=== PATIENT | male | born 1980 | race African-American/Black ===

== ENCOUNTER → 2016-10-31 | Outpatient (CLI) | payer MEDICAID | END | disposition home or self-care (01) | LOC: LABWHC1 13:01 | PROVIDERS: ATTEND Orthopaedic Surgery | DX: M79.672 Pain in left foot (principal); M72.2 Plantar fascial fibromatosis; M21.6X2 Other acquired deformities of left foot; M84.375A Stress fracture, left foot, initial encounter for fracture; E55.9 Vitamin D deficiency, unspecified | CPT/HCPCS: 36415; 82306 ==

== ENCOUNTER → 2019-12-14 | Outpatient (CLI) | payer MEDICAID, OTHER ==
--- NOTE | 2019-12-15 08:48 | MM ---
Reason for exam: clinical finding. Baseline mammogram. Indicated problem(s): lump or thickening in the left breast. Physical Findings: Nurse did not find any significant physical abnormalities on exam. MG Diagnostic Mammo w CAD REA Bilateral CC and MLO view(s) were taken. Bilateral minimal retroareolar flame shaped gynecomastia greater in the left breast. These results were verbally communicated with the patient and result sheet given to the patient on 12/14/19. ASSESSMENT: Incomplete: need additional imaging evaluation, BI-RAD 0 RECOMMENDATION: Ultrasound of the left breast. Manage patient on a clinical basis.
--- NOTE | 2019-12-15 08:51 | USB ---
Reason for exam: clinical finding. US Breast Limited LT Left limited breast ultrasound including focal area of concern, retroareolar and axilla demonstrates a 1.7cm hypoechoic lesion at the posterior nipple, correlates with mammogram, mild gynecomastia. No cystic or solid lesion at patient's palpable's. These results were verbally communicated with the patient and result sheet given to the patient on 12/14/19. ASSESSMENT: Benign, BI-RAD 2 RECOMMENDATION: Clinical management of the left breast. Manage patient on a clinical basis.
== END | disposition home or self-care (01) ==
LOC: RADMAMWWP 14:34
PROVIDERS: ATTEND Internal Medicine
DX: N63.20 Unspecified lump in the left breast, unspecified quadrant (principal); R92.8 Other abnormal and inconclusive findings on diagnostic imaging of breast
CPT/HCPCS: 77066

== ENCOUNTER → 2021-01-20 | Outpatient (CLI) | payer OTHER ==
--- NOTE | 2021-01-20 15:04 | CT ---
EXAMINATION TYPE: CT chest wo con DATE OF EXAM: 01/20/2021 COMPARISON: None HISTORY: Left chest and LUQ pain CT DLP: 1225.6 mGycm, Automated exposure control for dose reduction was used. CONTRAST: None TECHNIQUE: Axial images were obtained at 1 mm thick sections at 10 mm intervals. This will limit po rtions of the examination which may not be visualized within the [id number]. Images were obtained in the prone and supine views. FINDINGS: Portion of the thyroid visualized is normal. No suspicious lung nodules or focal infiltrat es are present. No enlarged mediastinal or hilar adenopathy is evident. Small pretracheal lymph nodes are present. The ascending aorta diameter at the level of the main pulmonary artery is 3.1 cm. The main pulmonary artery diameter at the bifurcation is 2.3r cm. Limited CT sections are obtained through the upper abdomen. Abdomen is essentially unremarkable. IMPRESSIONS: 1. No acute changes high-resolution CT chest
--- NOTE | 2021-01-20 15:14 | CT ---
EXAMINATION TYPE: CT abdomen wo con DATE OF EXAM: 01/20/2021 COMPARISON: None INDICATION: Left chest and LUQ pain DLP: 1013.7 mGycm, Automated exposure control for dose reduction was used. CONTRAST: 0 mL of Isovue 300. Study performed without Oral Contrast TECHNIQUE: Axial images were obtained from above the diaphragm to the pubic rami in the axial plane a t 5 mm thick sections. Reconstructed images are reviewed on the computer in the coronal plane. FINDINGS: Limited CT sections are obtained the lung bases. The lung bases are clear. CT ABDOMEN: Liver: Normal Spleen: Normal Pancreas: Normal Adrenal glands: The adrenal glands are normal. Gallbladder: Normal Kidneys: No masses are evident. No hydronephrosis is present. No cysts are present. No renal stone s are evident Aorta: Vascular calcification is within the aorta. Inferior vena cava: Normal. Loops of bowel within the abdomen and pelvis are normal. Study is without oral contrast limiting evaluation. No dilated loops of bowel are evident. IMPRESSIONS: 1. Normal noncontrast CT abdomen
== END | disposition home or self-care (01) ==
LOC: RADCTMAIN 14:22
PROVIDERS: ATTEND Internal Medicine
DX: R07.9 Chest pain, unspecified (principal); R10.12 Left upper quadrant pain
CPT/HCPCS: 71250; 74150

== ENCOUNTER → 2021-02-08 | Outpatient (CLI) | payer OTHER ==
--- NOTE | 2021-02-08 15:37 | CONS ---
CONSULTATION DATE OF SERVICE: 02/08/2021. This 40-year-old year old gentleman has been evaluated in the sleep center for possible obstructive sleep apnea-hypopnea syndrome. HISTORY OF PRESENT ILLNESS/SLEEP-WAKE EVALUATION: Patient's usual sleep schedule from 12:30 to 1 a.m. until 8:30 to 9:30 a.m. No problems with falling asleep, although he has TV in bedroom. He sleeps in different positions, including back, side and stomach with very loud snoring and witnessed episodes of stopped breathing during sleep. The patient wakes up from sleep many times and has to go to the restroom also multiple times during the night. No history of hypnagogic hallucinations, sleep paralysis or cataplexy. During the day, patient feels significantly sleepy. [place] Sleepiness Scale is in very high range of 20. He had episodes when he fell asleep during conversation. PAST MEDICAL HISTORY: Positive for headaches, back problems, bronchitis. CURRENT MEDICATIONS: Ventolin, Claritin, Desmet 7.5/325 mg. PAST SURGICAL HISTORY: None. FAMILY HISTORY: Stroke, hypertension, heart problems, cancer, diabetes. REVIEW OF SYSTEMS: Multiple awakenings from sleep, sleepiness during the day. No fevers. No double vision. No recent chest pain. No shortness of breath. No abdominal pain. No bleeding episodes. No blood in the urine. No seizure episodes. PHYSICAL EXAMINATION: GENERAL: -[place] gentleman without distress. VITAL SIGNS: BP 133/82, HR 88, RR 14, height 5 feet and 5 inches, weight 305.8, temperature 98.2, oxygen saturation at room air 99%. Body mass index 50.7. HEENT: PERRLA, EOMI. Oropharynx low position of soft palate. NECK: Wide 20-1/2 inches in circumference. LUNGS: Clear to percussion and to auscultation. Good air exchange. No wheezing or rhonchi. HEART: S1, S2 regular. No murmurs, gallops, or rubs. ABDOMEN: Soft and nontender. Bowel sounds are present. No organomegaly appreciated. EXTREMITIES: No clubbing or cyanosis. BALCONY WORKER: Awake, alert, and oriented X3. Cranial nerves 2 to 7 intact. There is no fasciculation or atrophy. noted. No focal deficits observed. IMPRESSION: 1. Loud snoring, witnessed episodes of stopped breathing during sleep, multiple awakenings from sleep, sleepiness, low position of soft palate, wide neck; obstructive sleep apnea-hypopnea syndrome. 2. Morbid obesity, body mass index 50.7. 3. Significant excessive daytime sleepiness. [place] Sleepiness Scale is 20. Dictated necessity to include hypersomnia and narcolepsy in differential diagnosis, but most probably all symptoms related to sleep apnea. 4. The patient is on treatment on Desmet which may increase risk for central sleep apnea. 5. Headaches. 6. Smoker for 20 years. PLAN: 1. Polysomnography for evaluation of patient's breathing during sleep. 2. CPAP/BiPAP titration if sleep study confirms obstructive sleep apnea-hypopnea syndrome. 3. Preferable position during sleep on the side. 4. No driving if patient feels any sleepiness. 5. I will see patient for follow up visit to explain results of testing and following plan. Thank you very much for referring this patient for consultation. Sincerely, Lane Vaughan MD, PhD, FAASM Diplomat of [place] [employer] [place] [employer] Case Assistant of [facility] [place] MMODL / ANIAN: [id number] /
== END ==
LOC: SLEEP 13:12
PROVIDERS: ATTEND Internal Medicine
DX: G47.33 Obstructive sleep apnea (adult) (pediatric) (principal); E66.01 Morbid (severe) obesity due to excess calories; Z68.43 Body mass index [BMI] 50.0-59.9, adult; Z87.891 Personal history of nicotine dependence; R51.9 Headache, unspecified
CPT/HCPCS: 99211

== ENCOUNTER → 2021-11-02 | Outpatient (CLI) | payer OTHER ==
--- NOTE | 2021-11-02 16:54 | SFUN ---
SLEEP CENTER FOLLOW UP NOTE DATE OF SERVICE: 11/02/2021. 41-year-old gentleman has been followed in Sleep Center for treatment of obstructive sleep apnea-hypopnea syndrome. The patient recently had sleep studies which showed extremely severe obstructive sleep apnea-hypopnea syndrome and I discussed results of sleep testing with patient in detail. Today is his first visit after he was started on treatment with CPAP. He feels much better with the CPAP. Sleepiness decreased from [place] Sleepiness Scale 20 down to 9 today. He sleeps better and he feels better. He only experiencing some dryness in the mouth while using machine. He is using fullface mask. I checked his BiPAP unit. Pressure is 18/14 cm of water. Usage is /30 nights and nights more than 4 hours. Average usage 6.8 hours per night, which is great compliance. Leak is high 55 L/minute. The patient using fullface mask. Apnea-hypopnea index 0.7 which is totally normal. Original apnea-hypopnea index is 100.6 with oxygen desaturation to 59.5%. MEDICATIONS: Ventolin, Claritin, [place], hydroxyzine. PHYSICAL EXAMINATION: GENERAL: Patient in no distress. BP 127/77, HR 80, RR 16, weight 298, temp 98.1, oxygen saturation at room air 98%. Oropharynx: Low position of soft palate. Neck is extremely wide 20.5 inches in circumference. NECK: Supple, no JVD. Thyroid is not palpable. LUNGS: Clear to percussion and to auscultation. Good air exchange. No wheezing or rhonchi. HEART: S1, S2 regular. No murmurs, gallops, or rubs. ABDOMEN: Slightly obese. Soft and nontender. Bowel sounds are present. No organomegaly appreciated. EXTREMITIES: No clubbing or cyanosis. COMPUTER METHODS ANALYST: Awake, alert, and oriented X3. Cranial nerves 2 to 7 intact. There is no fasciculation or atrophy. noted. No focal deficits observed. IMPRESSION: 1. Extremely severe obstructive sleep apnea-hypopnea syndrome apnea-hypopnea index 100.6 with oxygen desaturation to 59.5%. The patient demonstrated great compliance with treatment, benefitting from treatment. Totally normal respiration on BiPAP. Apnea-hypopnea index 0.7. The patient improved his alertness to normal range. 2. Obesity. 3. History of headaches. 4. Smoker for 20 years. PLAN: 1. I taught the patient how to adjust humidity in a BiPAP unit and I adjusted humidity up from level 4 to level 6. 2. I explained to patient about position of the machine during the night and necessity to be sure he has to remove the water from the tube and humidifier letter, dry. 3. Patient will continue to use PAP equipment every night for the whole night. 4. Sleep hygiene with regular time in bed for at least 7-1/2 to 8 hours. 5. Precautions related to driving. No driving if feeling sleepiness. 6. I will maintain all necessary prescription for PAP supplies including mask, tube, filters. 7. Watching weight. 8. Follow-up visit in 6 months or earlier if patient has any problems. Thank you very much for allowing me to participate in management of your patient. Sincerely, Lane Vaughan MD, PhD, FAASM Diplomat of [place] [employer] Sleep Medicine Board of [place] [employer] of Internal Medicine Creative Engagement Director of [facility] [place] MMYULIA / MAX: [phone] /
== END ==
LOC: SLEEP 11:40
PROVIDERS: ATTEND Internal Medicine
DX: G47.33 Obstructive sleep apnea (adult) (pediatric) (principal); G47.36 Sleep related hypoventilation in conditions classified elsewhere; E66.9 Obesity, unspecified; Z86.69 Personal history of other diseases of the nervous system and sense organs; Z87.891 Personal history of nicotine dependence; Z99.89 Dependence on other enabling machines and devices

== ENCOUNTER → 2022-05-17 | Outpatient (CLI) | payer OTHER ==
--- NOTE | 2022-05-17 12:20 | P.PN ---
Subjective DATE: 05/17/2022 FOLLOW UP VISIT. Patient with obstructive sleep apnea hypopnea syndrome return to sleep center for follow-up visit. Information from previous visit have been reviewed. Patient is using PAP equipment every night for the whole night, getting PAP supplies in time. Patient feels that his humidifier in BiPAP unit does not work well. [place] sleepiness scale is 6. I checked BiPAP unit. Heated humidifier does not work properly. Air filter has to be changed immediately. BiPAP unit pressure 18/14 cm H2O. Usage is 100 % for more then 4 hours, average 7.6 hours per night. Leak is 70 l/m, which is in high range. Apnea Hypopnea Index is 0.3, which is normal. MEDICATIONS:1. Loratidine 2. Motrin During physical exam: GENERAL: A pleasant patient without any distress. VITAL SIGNS: BP 120/84, HR 80, RR 16, weight 278.8, temperature 97.3, oxygen saturation at room air 99 % . HEENT: PERRLA, EOMI.low position of soft palate. NECK: Supple. No JVD. LUNGS: Clear to percussion and to auscultation. Good air exchange. No wheezing or rhonchi. HEART: S1, S2 regular. ABDOMEN: Soft and nontender. Obese EXTREMITIES: No clubbing or cyanosis. RECOVERY MANAGER: Awake, alert, and oriented x3. No focal deficit. Impressions: 1. Obstructive sleep apnea-hypopnea syndrome. Patient demonstrated great compliance with treatment, benefiting from treatment. Heated humidifier does not work well. 2. Obesity. 3. Headaches. 4. ALLERGY. 5. Smoker. Plan: 1. Continue using PAP equipment every night for the whole night. Prescription was written to fix or replace heated humidifier in BiPAP unit. 2. To change air filter at least 1-2 times per month. 3. PAP unit should stay lower then position of the head. 4. Advised patient to remove all remaining water from humidifier canister daily and make it dry after each usage. Refill canister with fresh distilled water before each usage. 5. Sleep hygiene with regular time in bed for at least 8 hours. 6. Precautions related to driving. No driving if feel any sleepiness. 7. I will maintain prescription for PAP supplies including mask, tube, filters. 8. Follow up visit in 6 months or earlier if patient has any problems. 9. Losing weight. 10. Smoking cessation program. Thank you very much for allowing me to participate in the management of your patient. Lane Vaughan MD, PhD, FAASM. Diplomat of [place] Board of Sleep Medicine, Sleep Medicine Board by [place] Board of Internal Medicine An/Syq 13 Nav/C2 Operator of [facility] [place]
== END ==
LOC: SLEEP 11:35
PROVIDERS: ATTEND Internal Medicine
DX: G47.33 Obstructive sleep apnea (adult) (pediatric) (principal); E66.9 Obesity, unspecified; T78.40XA Allergy, unspecified, initial encounter; Z87.891 Personal history of nicotine dependence; Z99.89 Dependence on other enabling machines and devices

== ENCOUNTER → 2023-06-06 | Outpatient (CLI) | payer OTHER ==
--- NOTE | 2023-06-06 13:38 | P.PN ---
Subjective DATE: 06/06/2023 FOLLOW UP VISIT. Patient with obstructive sleep apnea hypopnea syndrome return to sleep center for follow-up visit. Information from previous visit have been reviewed. Patient is using PAP equipment every night for the whole night, getting PAP supplies in time. The patient does not have significant problems with the mask, PAP unit and humidification. [place] sleepiness scale is 10, which is borderline. I checked information from PAP unit. PAP unit pressure 18/14 cm H2O. Usage is 100 % for more then 4 hours, average 8.1 hours per night. Leak is extremely high 65 l/m. Patient has hole in his mask. Apnea Hypopnea Index is 1.0, which is normal. Temperature in the heated tube to is 62, which could be the reason for condensation of water in the tube. MEDICATIONS:1. Vitamin D 2. Vitamin C 3. Motrin During physical exam: GENERAL: A pleasant patient without any distress. VITAL SIGNS: BP 133/81, HR 70, RR 16 , weight 278.8, temperature 97.8, oxygen saturation at room air 98 % . HEENT: PERRLA, EOMI.low position of soft palate, Mallapati 3 . NECK: Supple. No JVD. LUNGS: Clear to percussion and to auscultation. Good air exchange. No wheezing or rhonchi. HEART: S1, S2 regular. ABDOMEN: Soft and nontender. Slightly obese EXTREMITIES: No clubbing or cyanosis. TRIPPER: Awake, alert, and oriented x3. No focal deficit. Impressions: 1. Obstructive sleep apnea-hypopnea syndrome. Patient demonstrated great compliance with treatment, benefiting from treatment. 2. Obesity, BMI 46.4, patient lost 8 pounds since previous visit. 3. ALLERGY. 4. History of headaches. I increased temperature in the tube to 82. Plan: 1. Continue using PAP equipment every night for the whole night. Patient should replace his CPAP fullface mask immediately. We gave him new mask. 2. To change air filter at least 1-2 times per month. 3. PAP unit should stay lower then position of the head. 4. Advised patient to remove all remaining water from humidifier canister daily and make it dry after each usage. Refill canister with fresh distilled water before each usage. 5. Sleep hygiene with regular time in bed for at least 8 hours. 6. Precautions related to driving. No driving if feel any sleepiness. 7. I will maintain prescription for PAP supplies including mask, tube, filters. 8. Follow up visit in 6 months or earlier if patient has any problems. 9. Watching and losing weight. Thank you very much for allowing me to participate in the management of your patient. Lane Vaughan MD, PhD, FAASM. Diplomat of [place] Board of Sleep Medicine, Sleep Medicine Board by [place] Board of Internal Medicine Junior Assistant Manager of [facility] [place]
== END ==
LOC: 3 N SLEEP 10:52
PROVIDERS: ATTEND Internal Medicine
DX: G47.33 Obstructive sleep apnea (adult) (pediatric) (principal); E66.9 Obesity, unspecified; F17.200 Nicotine dependence, unspecified, uncomplicated; Z68.42 Body mass index [BMI] 45.0-49.9, adult; Z86.69 Personal history of other diseases of the nervous system and sense organs; Z99.89 Dependence on other enabling machines and devices
CPT/HCPCS: 99212

== ENCOUNTER → 2023-12-12 | Outpatient (CLI) | payer BC ==
[2023-12-12 12:01] VITALS: BP 128/76; PULSE 60; RESP 16; TEMP 97.5
--- NOTE | 2023-12-12 12:14 | P.PN ---
Subjective DATE: 12/12/2023 FOLLOW UP VISIT. Patient with obstructive sleep apnea hypopnea syndrome return to sleep center for follow-up visit. Information from previous visit have been reviewed. Patient is using PAP equipment every night for the whole night, getting PAP supplies in time. The patient does not have significant problems with the mask, PAP unit and humidification. [place] sleepiness scale is increased to 13. I checked information from PAP unit. BPAP unit pressure 18/14 cm H2O. Usage is 100% for more then 4 hours, average 7.7 hours per night. Leak is increased to 52 l/m. Apnea Hypopnea Index is 0.7, which is perfect. MEDICATIONS:1. Flexeril 2. Motrin 3. Vitamin C During physical exam: GENERAL: A pleasant patient without any distress. VITAL SIGNS: See below. HEENT: PERRLA, EOMI.low position of soft palate, Mallapati 3 . NECK: Supple. No JVD. LUNGS: Clear to percussion and to auscultation. Good air exchange. No wheezing or rhonchi. HEART: S1, S2 regular. ABDOMEN: Soft and nontender. Obese EXTREMITIES: No clubbing or cyanosis. COURT STENOGRAPHER: Awake, alert, and oriented x3. No focal deficit. Impressions: 1. Obstructive sleep apnea-hypopnea syndrome. Patient demonstrated great compliance with treatment, benefiting from treatment. 2. Obesity, patient increased weight on 9 pounds. 3. Allergy. 4. History of headaches. Plan: 1. Continue using PAP equipment every night for the whole night. 2. To change air filter at least 1-2 times per month. 3. PAP unit should stay lower then position of the head. 4. Advised patient to remove all remaining water from humidifier canister daily and make it dry after each usage. Refill canister with fresh distilled water before each usage. 5. Sleep hygiene with regular time in bed for at least 8 hours. 6. Precautions related to driving. No driving if feel any sleepiness. 7. I will maintain prescription for PAP supplies including mask, tube, filters. 8. Watching and losing weight. 9. Follow up visit in 6 months or earlier if patient has any problems. Thank you very much for allowing me to participate in the management of your patient. Lane Vaughan MD, PhD, FAASM. Diplomat of [place] Board of Sleep Medicine, Sleep Medicine Board by [place] Board of Internal Medicine Cooker Syrup of [facility] [place] Objective - Vital Signs Vital signs: Vital Signs Temp 97.5 F L 12/12/23 12:00 Pulse 60 12/12/23 12:00 Resp 16 12/12/23 12:00 BP 128/76 12/12/23 12:00 Pulse Ox 97 12/12/23 12:00 FiO2 Intake & Output 12/11/23 12/12/23 12/12/23 18:59 06:59 18:59 Weight 130.181 kg
== END ==
LOC: 3 N SLEEP 11:18
PROVIDERS: ATTEND Internal Medicine
DX: G47.33 Obstructive sleep apnea (adult) (pediatric) (principal); E66.9 Obesity, unspecified; F17.200 Nicotine dependence, unspecified, uncomplicated; T78.40XA Allergy, unspecified, initial encounter; Z86.69 Personal history of other diseases of the nervous system and sense organs; Z99.89 Dependence on other enabling machines and devices; Z68.42 Body mass index [BMI] 45.0-49.9, adult
CPT/HCPCS: 99212

== ENCOUNTER → 2024-07-16 | Outpatient (CLI) | payer BC ==
[2024-07-16 11:28] VITALS: BP 120/78; PULSE 75; RESP 18; TEMP 97.7
--- NOTE | 2024-07-16 11:49 | P.PROGSL ---
Subjective DATE: 07/16/2024 FOLLOW UP VISIT. Patient with obstructive sleep apnea hypopnea syndrome return to sleep center for follow-up visit. Information from previous visit have been reviewed. Patient is using PAP equipment every night for the whole night, getting PAP supplies in time. The patient does not have significant problems with the mask, PAP unit and humidification. [place] sleepiness scale is increased to 15. I checked information from PAP unit. BPAP unit pressure 18/14 cm H2O. Usage is 100% for more then 4 hours, average 7.9 hours per night. Leak is increased to 36 l/m. Apnea Hypopnea Index is 0.5, which is perfect. MEDICATIONS Motrin, hydrocodone. During physical exam: GENERAL: A pleasant patient without any distress. VITAL SIGNS: Please see below, weight is 273.8 lbs. HEENT: PERRLA, EOMI.low position of soft palate, Mallapati 3. NECK: Supple. No JVD. LUNGS: Clear to percussion and to auscultation. Good air exchange. No wheezing or rhonchi. HEART: S1, S2 regular. ABDOMEN: Soft and nontender. Obese EXTREMITIES: No clubbing or cyanosis. MANAGER RELIABILITY: Awake, alert, and oriented x3. No focal deficit. Impressions: 1. Obstructive sleep apnea-hypopnea syndrome. Patient demonstrated great compliance with treatment, benefiting from treatment. 2. Obesity, BMI 46.5, patient lost 13 pounds comparing with previous visit. 3. Allergy. 4. History of headaches. Plan: 1. Continue using PAP equipment every night for the whole night. 2. Sleep hygiene with regular time in bed for at least 7.5-8 hours 3. PAP unit should stay lower then position of the head. 4. Advised patient to remove all remaining water from humidifier canister daily and make it dry after each usage. Refill canister with fresh distilled water be fore each usage. 5. Watching and losing weight. 6. Precautions related to driving. No driving if feel any sleepiness. 7. I will maintain prescription for PAP supplies including mask, tube, filters. 8. Follow up visit in 8 months or earlier if patient has any problems. Thank you very much for allowing me to participate in the management of your patient. Lane Vaughan MD, PhD, FAASM. Diplomat of [place] Board of Sleep Medicine, Sleep Medicine Board by [place] [employer] of Internal Medicine Punch Machine Hand of [facility] [place] Objective - Vital Signs Vital Signs: Vital Signs Temp 97.7 F 07/16/24 11:28 Pulse 75 07/16/24 11:28 Resp 18 07/16/24 11:28 BP 120/78 07/16/24 11:28 Pulse Ox 98 07/16/24 11:28 FiO2 Intake & Output 07/15/24 07/16/24 07/16/24 18:59 06:59 18:59 Weight 124.058 kg Home Medications: Home Medications Medication Instructions Recorded Confirmed Type Ibuprofen [Motrin] 600 mg PO Q6HR PRN #20 tab 05/06/14 12/12/23 Rx Cyclobenzaprine [Flexeril] 10 mg PO TID 11/01/14 11/01/14 History Ascorbic Acid [Vitamin C] 12/12/23 History
== END | disposition home or self-care (01) ==
LOC: 3 N SLEEP 10:02
PROVIDERS: ATTEND Internal Medicine
CPT/HCPCS: 99212

== ENCOUNTER → 2025-03-18 | Outpatient (CLI) | payer BC ==
--- NOTE | 2025-03-18 18:09 | P.PROGSL ---
Subjective DATE: 03/18/2025 FOLLOW UP VISIT. Patient with obstructive sleep apnea hypopnea syndrome return to sleep center for follow-up visit. Information from previous visit have been reviewed. Patient is using PAP equipment every night for the whole night, getting PAP supplies in time. The patient does not have significant problems with the mask, PAP unit and humidification. [place] sleepiness scale is increased to 15. I checked information from PAP unit. BPAP unit pressure 18/14 cm H2O. Usage is 100% for more then 4 hours, average 6.6 hours per night. Leak is 25 l/m, which is in acceptable range. Apnea Hypopnea Index is 0.4, which is normal. MEDICATIONS have been reviewed, please see below. During physical exam: GENERAL: A pleasant patient without any distress. VITAL SIGNS: Please see below, weight is 268.2 lbs. HEENT: PERRLA, EOMI.low position of soft palate, Mallapati 3 . NECK: Supple. No JVD. LUNGS: Clear to percussion and to auscultation. Good air exchange. No wheezing or rhonchi. HEART: S1, S2 regular. ABDOMEN: Soft and nontender. Obese EXTREMITIES: No clubbing or cyanosis. HAIR MIXER: Awake, alert, and oriented x3. No focal deficit. Impressions: 1. Obstructive sleep apnea-hypopnea syndrome. Patient demonstrated great compliance with treatment, benefiting from treatment. 2. Obesity: Patient lost 5 pounds comparing with previous visit. 3. Allergy. 4. History of headaches. Plan: 1. Continue using PAP equipment every night for the whole night. 2. Sleep hygiene with regular time in bed for at least 7.5-8 hours 3. PAP unit should stay lower then position of the head. 4. Advised patient to remove all remaining water from humidifier canister daily and make it dry after each usage. Refill canister with fresh distilled water before each usage. 5. Watching weight. 6. Precautions related to driving. No driving if feel any sleepiness. 7. I will maintain prescription for PAP supplies including mask, tube, filters. 8. Follow up visit in 8 months or earlier if patient has any problems. Thank you very much for allowing me to participate in the management of your patient. Lane Vaughan MD, PhD, FAASM. Diplomat of [place] Board of Sleep Medicine, Sleep Medicine Board by [place] Board of [employer] Medicine Electronic Systems Security Assessment of [facility] [place] Objective Home Medications: Home Medications Medication Instructions Recorded Confirmed Type Ibuprofen [Motrin] 600 mg PO Q6HR PRN #20 tab 05/06/14 12/12/23 Rx Cyclobenzaprine [Flexeril] 10 mg PO TID 11/01/14 11/01/14 History Ascorbic Acid [Vitamin C] 12/12/23 History
== END ==
LOC: 3 N SLEEP 16:33
PROVIDERS: ATTEND Internal Medicine
DX: G47.33 Obstructive sleep apnea (adult) (pediatric) (principal); E66.9 Obesity, unspecified; T78.40XA Allergy, unspecified, initial encounter; F17.200 Nicotine dependence, unspecified, uncomplicated; Z86.69 Personal history of other diseases of the nervous system and sense organs; Z99.89 Dependence on other enabling machines and devices
CPT/HCPCS: 99212